=== PATIENT | male | born 1945 | race Caucasian/White ===

== ENCOUNTER 2022-03-23 12:35 | Outpatient (CLI) | payer OTHER ==
[2022-03-23] MEDS ORDERED: Iopamidol 300 61% 100 ML VIAL FS ONE (15:56)
== END 2022-03-23 12:36 | disposition home or self-care (01) ==
LOC: CSHCT 12:35
PROVIDERS: ATTEND Specialist
DX: I71.4 Abdominal aortic aneurysm, without rupture (principal); Z98.890 Other specified postprocedural states; I72.3 Aneurysm of iliac artery
CPT/HCPCS: 74174; 82565; Q9967